=== PATIENT | male | born 1940 | race Caucasian/White ===

== ENCOUNTER 2018-10-10 14:49 | Inpatient (IN) | payer MEDICARE, OTHER ==
[~2018-10-10] VITALS: Ht 177.8 cm; Wt 81.8 kg
[~2018-10-10 14:49] MED LIST: FURO-150 PO
[2018-10-10 15:39] LABS: BASOPHILS # (AUTO) 0.1 X10'3 (0-0.2); BASOPHILS % (AUTO) 0.6 % (0-1); EOSINOPHILS # (AUTO) 2.2 X10'3 (0-0.9); EOSINOPHILS % (AUTO) 22.8 % (0-6); HEMATOCRIT 44.5 % (42.0-52.0); HEMOGLOBIN 14.9 g/dl (14.0-17.9); LYMPHOCYTES # (AUTO) 1.5 X10'3 (1.1-4.8); LYMPHOCYTES % (AUTO) 15.2 % (21-51); MEAN CORPUSCULAR HEMOGLOBIN 31.8 PG (27.0-31.0); MEAN CORPUSCULAR HGB CONC 33.4 % (33.0-36.5); MEAN CORPUSCULAR VOLUME 95.3 FL (78-98); MONOCYTES # (AUTO) 0.8 X10'3 (0-0.9); MONOCYTES % (AUTO) 8.2 % (2-12); NEUTROPHILS # (AUTO) 5.2 X10'3 (1.8-7.7); NEUTROPHILS % (AUTO) 53.2 % (42-75); PLATELET COUNT 214 X10'3 (140-440); RED BLOOD COUNT 4.67 X10'6 (4.70-6.10); RED CELL DISTRIBUTION WIDTH 13.5 % (11.5-14.5); WHITE BLOOD COUNT 9.8 X10'3 (4.5-11.0)
[2018-10-10 15:55] LABS: ALANINE AMINOTRANSFERASE 36 U/L (12-78); ALBUMIN/GLOBULIN RATIO 0.9 (1.1-1.5); ALKALINE PHOSPHATASE 51 IU/L (46-116); ANION GAP 6 (8-16); ASPARTATE AMINO TRANSFERASE 38 U/L (10-37); BILIRUBIN,TOTAL 0.9 MG/DL (0.1-1.0); BLOOD UREA NITROGEN 24 MG/DL (7-18); BUN/CREATININE RATIO 17.9 (5.4-32.0); CALCIUM 9.7 MG/DL (8.5-10.1); CHLORIDE 103 MMOL/L (99-107); CREATININE 1.34 MG/DL (0.60-1.10); GLUCOSE 111 MG/DL (70-104); POTASSIUM 4.9 MMOL/L (3.5-5.1); SODIUM 139 MMOL/L (135-145); TOTAL CARBON DIOXIDE 29.9 MMOL/L (24-32); TOTAL PROTEIN 6.4 G/DL (6.4-8.2); eGFR 51 ML/MIN
[2018-10-10 16:22] LABS: INR 1.5 INR; PARTIAL THROMBOPLASTIN TIME 42 SECONDS (22-32); PROTHROMBIN TIME 14.5 SECONDS (9.0-12.0)
[2018-10-10] MEDS ORDERED: iohexol 350MG/ML 100ml bottle IV ONE (19:13)
[2018-10-10] MEDS ORDERED: temazepam 15mg capsule PO PRN (21:00)
[2018-10-10] MEDS ORDERED: normal saline 1000ml 1,000 ML IV SCH (22:01)
[2018-10-10] MEDS ORDERED: metoclopramide 5 mg/ml inj IV PRN (22:05)
[2018-10-10] MEDS ORDERED: mag hydrox/Alum hydrox/simeth 30ml oral suspension PO PRN (22:05)
[2018-10-10] MEDS ORDERED: morphine 2 MG/ML inj. syringe IV PRN (22:05)
[2018-10-10] MEDS ORDERED: HYDROmorphone 1 mg/ml syringe IV PRN (22:05)
[2018-10-10] MEDS ORDERED: diphenhydrAMINE 50 mg/ml inj IV PRN (22:05)
[2018-10-10] MEDS ORDERED: acetaminophen 325mg tablet PO PRN ×2 (22:05)
[2018-10-10] MEDS ORDERED: ondansetron/PF 4mg/2ml inj IV PRN (22:05)
[2018-10-10] MEDS ORDERED: acetaminophen 650mg rectal suppository RC PRN (22:05)
[2018-10-10] MEDS ORDERED: diphenhydrAMINE 25mg capsule PO PRN (22:05)
[2018-10-10] MEDS ORDERED: magnesium hydroxide 30ml (MOM) UD suspension PO PRN (22:05)
[2018-10-10] MEDS ORDERED: bisacodyl 10mg suppository rectal RC PRN (22:05)
[2018-10-10] MEDS ORDERED: HYDROcodone/acetaminophen 10/325mg tab PO PRN (22:05)
[2018-10-10] MEDS ORDERED: morphine 4 MG/ML inj SYRINge IV PRN (22:13)
[2018-10-10] MEDS ORDERED: RIVA10TA PO (22:13)
[2018-10-10] MEDS ORDERED: METO-539 PO (22:13)
[2018-10-10] MEDS ORDERED: BRIM5DRO EACHEYE (22:26)
[2018-10-10] MEDS ORDERED: DORZ10DR18 EACHEYE (22:26)
[2018-10-10 22:51] LABS: HEMOGLOBIN A1C 5.6 % (4.5-6.2)
[2018-10-10 23:03] LABS: LIPASE 111 U/L (73-393); PHOSPHORUS 3.5 MG/DL (2.3-4.5)
[2018-10-11 04:37] LABS: BASOPHILS # (AUTO) 0.1 X10'3 (0-0.2); BASOPHILS % (AUTO) 0.6 % (0-1); EOSINOPHILS # (AUTO) 2.4 X10'3 (0-0.9); EOSINOPHILS % (AUTO) 26.3 % (0-6); HEMATOCRIT 40.9 % (42.0-52.0); HEMOGLOBIN 13.7 g/dl (14.0-17.9); LYMPHOCYTES # (AUTO) 1.9 X10'3 (1.1-4.8); LYMPHOCYTES % (AUTO) 19.9 % (21-51); MEAN CORPUSCULAR HGB CONC 33.5 % (33.0-36.5); MEAN CORPUSCULAR VOLUME 95.4 FL (78-98); MEAN PLATELET VOLUME 8.9 FL (7.4-10.4); MONOCYTES # (AUTO) 0.7 X10'3 (0-0.9); MONOCYTES % (AUTO) 7.4 % (2-12); NEUTROPHILS # (AUTO) 4.3 X10'3 (1.8-7.7); NEUTROPHILS % (AUTO) 45.8 % (42-75); PLATELET COUNT 171 X10'3 (140-440); RED BLOOD COUNT 4.28 X10'6 (4.70-6.10); RED CELL DISTRIBUTION WIDTH 13.5 % (11.5-14.5); WHITE BLOOD COUNT 9.3 X10'3 (4.5-11.0)
[2018-10-11 05:56] LABS: ALANINE AMINOTRANSFERASE 32 U/L (12-78); ALBUMIN 2.5 G/DL (3.4-5.0); ALBUMIN/GLOBULIN RATIO 0.8 (1.1-1.5); ALKALINE PHOSPHATASE 49 IU/L (46-116); ANION GAP 9 (8-16); BILIRUBIN,TOTAL 0.8 MG/DL (0.1-1.0); BLOOD UREA NITROGEN 24 MG/DL (7-18); BUN/CREATININE RATIO 23.1 (5.4-32.0); CHLORIDE 105 MMOL/L (99-107); CHOL/HDL RATIO 3.6 (0.00-4.99); CHOLESTEROL 128 MG/DL (0-200); CREATININE 1.04 MG/DL (0.60-1.10); GLUCOSE 92 MG/DL (70-104); HDL CHOLESTEROL 36 MG/DL (35-60); LDL CHOLESTEROL 80 MG/DL (50-100); SODIUM 140 MMOL/L (135-145); TOTAL CARBON DIOXIDE 26.5 MMOL/L (24-32); TOTAL PROTEIN 5.5 G/DL (6.4-8.2); TRIGLYCERIDES 56 MG/DL (20-135); eGFR 69 ML/MIN
[2018-10-11 06:00] VITALS: BP 114/68
[2018-10-11 06:01] LABS: ASPARTATE AMINO TRANSFERASE 38 U/L (10-37); POTASSIUM 4.7 MMOL/L (3.5-5.1)
[2018-10-11] MEDS ORDERED: pantoprazole 40mg Tablet.DR PO SCH (07:30)
[2018-10-11] MEDS ORDERED: docusate sod 100mg capsule PO SCH (08:00)
[2018-10-11] MEDS ORDERED: furosemide 10 MG/1 ML 10ml inj IV SCH (08:00)
== END 2018-10-11 11:54 | disposition left against medical advice (07) | DRG 199 ==
LOC: ER 14:50 → ED HOLD 22:01
PROVIDERS: ADMIT Family Medicine; ATTEND Internal Medicine
PROC: B32T1ZZ Computerized Tomography (CT Scan) of Left Pulmonary Artery using Low Osmolar Contrast (ICD-10-PCS; principal; 2018-10-10)
PROC: B3201ZZ Computerized Tomography (CT Scan) of Thoracic Aorta using Low Osmolar Contrast (ICD-10-PCS; 2018-10-10)
PROC: B32S1ZZ Computerized Tomography (CT Scan) of Right Pulmonary Artery using Low Osmolar Contrast (ICD-10-PCS; 2018-10-10)
DX: J93.83 Other pneumothorax (principal); I50.23 Acute on chronic systolic (congestive) heart failure; N17.9 Acute kidney failure, unspecified; I49.5 Sick sinus syndrome; Z53.21 Procedure and treatment not carried out due to patient leaving prior to being seen by health care provider; Z95.0 Presence of cardiac pacemaker; Z79.899 Other long term (current) drug therapy; Z87.891 Personal history of nicotine dependence
CPT/HCPCS: 36415; 71045; 71275; 80053; 80061; 83036; 83605; 83690; 83735; 83880; 84100; 84145; 84443; 84484; 85025; 85610; 85730; 93005; 99285; G0378; J1940; Q9967

== ENCOUNTER 2018-11-19 13:58 | Day surgery (SDC) | payer MEDICARE, OTHER ==
[2018-11-18 09:15] LABS: BASOPHILS % (AUTO) 0.6 % (0-1); EOSINOPHILS # (AUTO) 0.5 X10'3 (0-0.9); EOSINOPHILS % (AUTO) 7.3 % (0-6); HEMATOCRIT 44.8 % (42.0-52.0); HEMOGLOBIN 15.2 g/dl (14.0-17.9); LYMPHOCYTES # (AUTO) 2.8 X10'3 (1.1-4.8); LYMPHOCYTES % (AUTO) 43.6 % (21-51); MEAN CORPUSCULAR HEMOGLOBIN 31.9 PG (27.0-31.0); MEAN CORPUSCULAR VOLUME 93.8 FL (78-98); MEAN PLATELET VOLUME 8.3 FL (7.4-10.4); MONOCYTES # (AUTO) 0.4 X10'3 (0-0.9); MONOCYTES % (AUTO) 6.5 % (2-12); NEUTROPHILS # (AUTO) 2.7 X10'3 (1.8-7.7); PLATELET COUNT 120 X10'3 (140-440); RED BLOOD COUNT 4.78 X10'6 (4.70-6.10); RED CELL DISTRIBUTION WIDTH 14.1 % (11.5-14.5); WHITE BLOOD COUNT 6.4 X10'3 (4.5-11.0)
[2018-11-18 09:23] LABS: ALBUMIN 3.4 G/DL (3.4-5.0); ANION GAP 6 (8-16); BLOOD UREA NITROGEN 18 MG/DL (7-18); BUN/CREATININE RATIO 16.5 (5.4-32.0); CALCIUM 9.1 MG/DL (8.5-10.1); CHLORIDE 106 MMOL/L (99-107); CREATININE 1.09 MG/DL (0.60-1.10); GLUCOSE 97 MG/DL (70-104); POTASSIUM 4.3 MMOL/L (3.5-5.1); SODIUM 143 MMOL/L (135-145); TOTAL CARBON DIOXIDE 31.2 MMOL/L (24-32); eGFR 65 ML/MIN
[2018-11-18 09:27] LABS: PROTHROMBIN TIME 11.1 SECONDS (9.0-12.0)
[2018-11-18 09:28] LABS: INR 1.1 INR; PARTIAL THROMBOPLASTIN TIME 27 SECONDS (22-32)
[2018-11-19] VITALS (7 sets, daily range): BP systolic 102–147; BP diastolic 63–89
[~2018-11-19] VITALS: Ht 177.8 cm; Wt 77.6 kg
[~2018-11-19 13:58] MED LIST changes: +BRIM5DRO EACHEYE; +DORZ10DR18 EACHEYE; -FURO-150 PO; +METO-539 PO; +RIVA10TA PO
[2018-11-19] MEDS ORDERED: diphenhydrAMINE 25mg capsule PO PRN (14:20)
[2018-11-19] MEDS ORDERED: LORazepam 0.5 MG tablet PO PRN (14:20)
[2018-11-19] MEDS ORDERED: normal saline 1000ml 1,000 ML IV SCH (14:20)
[2018-11-19] MEDS ORDERED: METO25TA6 PO (14:22)
[2018-11-19] MEDS ORDERED: MAGN61TA3 PO (14:22)
[2018-11-19] MEDS ORDERED: GABA-532 PO (14:22)
[2018-11-19] MEDS ORDERED: ASPI81TA52 PO (14:22)
[2018-11-19] MEDS ORDERED: LIDOcaine 1% (10mg/ml)w/preservative injection 20ml MDV ONE (16:09)
[2018-11-19] MEDS ORDERED: iohexol 350MG/ML 100ml bottle IV ONE (16:09)
[2018-11-19] MEDS ORDERED: midazolam 2 mg/2 ml injection ONE (16:09)
[2018-11-19] MEDS ORDERED: fentaNYL/PF 50MCG/1 ML 2ML syringe ONE (16:09)
[2018-11-19] MEDS ORDERED: HYDROcodone/acetaminophen 5mg/325mg tablet PO PRN (17:55)
[2018-11-19] MEDS ORDERED: ondansetron/PF 4mg/2ml inj IV PRN (17:55)
[2018-11-19] MEDS ORDERED: proCHLORperazine 10 MG/2 ml inj IV PRN (18:00)
[2018-11-19] MEDS ORDERED: HYDROcodone/acetaminophen 10/325mg tab PO PRN (18:00)
[2018-11-19] MEDS ORDERED: OXAZEpam 15mg capsule PO PRN (18:00)
== END 2018-11-19 19:35 | disposition home or self-care (01) ==
LOC: SSTAY O 13:58
PROVIDERS: ATTEND Internal Medicine Interventional Cardiology
DX: I25.10 Atherosclerotic heart disease of native coronary artery without angina pectoris (principal); E78.49 Other hyperlipidemia; I48.91 Unspecified atrial fibrillation; J90 Pleural effusion, not elsewhere classified; I10 Essential (primary) hypertension; I49.8 Other specified cardiac arrhythmias; M19.90 Unspecified osteoarthritis, unspecified site; H91.8X3 Other specified hearing loss, bilateral; Z90.89 Acquired absence of other organs; Z72.89 Other problems related to lifestyle; Z87.438 Personal history of other diseases of male genital organs; Z79.82 Long term (current) use of aspirin; Z86.79 Personal history of other diseases of the circulatory system; Z87.891 Personal history of nicotine dependence; Z87.09 Personal history of other diseases of the respiratory system; Z95.0 Presence of cardiac pacemaker; Z79.891 Long term (current) use of opiate analgesic; Z79.899 Other long term (current) drug therapy; Z98.890 Other specified postprocedural states
CPT/HCPCS: 36415; 80048; 85025; 85610; 85730; 93005; 93458; 99152; 99153; J1644; J2001; J2250; J3010; J7030; Q0163; Q9967; A4620; C1769

== ENCOUNTER 2019-09-11 05:44 | Day surgery (SDC) | payer MEDICARE, OTHER ==
[2019-09-07 10:29] LABS: BASOPHILS % (AUTO) 0.6 % (0-1); EOSINOPHILS # (AUTO) 0.2 X10'3 (0-0.9); EOSINOPHILS % (AUTO) 3.7 % (0-6); LYMPHOCYTES # (AUTO) 2.3 X10'3 (1.1-4.8); LYMPHOCYTES % (AUTO) 41.6 % (21-51); MEAN CORPUSCULAR HEMOGLOBIN 32.2 PG (27.0-31.0); MEAN CORPUSCULAR VOLUME 94.6 FL (78-98); MEAN PLATELET VOLUME 8.5 FL (7.4-10.4); MONOCYTES # (AUTO) 0.4 X10'3 (0-0.9); MONOCYTES % (AUTO) 7.1 % (2-12); NEUTROPHILS # (AUTO) 2.6 X10'3 (1.8-7.7); PRE OP HEMATOCRIT 43.8 % (42.0-52.0); PRE OP HEMOGLOBIN 14.9 g/dL (14.0-17.9); RED BLOOD COUNT 4.63 X10'6 (4.70-6.10)
[2019-09-07 10:32] LABS: PRE OP PLATELET COUNT 100 X10'3 (140-440)
[2019-09-07 10:46] LABS: ALBUMIN 3.6 G/DL (3.4-5.0); ALBUMIN/GLOBULIN RATIO 1.4 (1.1-1.5); ALKALINE PHOSPHATASE 50 IU/L (46-116); BLOOD UREA NITROGEN 21 MG/DL (7-18); BUN/CREATININE RATIO 19.1 (5.4-32.0); CALCIUM 8.8 MG/DL (8.5-10.1); CHLORIDE 107 MMOL/L (99-107); PRE OP ALT 20 U/L (30-65); PRE OP ANION GAP 4 (8-16); PRE OP AST 38 U/L (10-37); PRE OP BILIRUB, TOTAL 0.7 MG/DL (0.0-1.0); PRE OP GLUCOSE 90 MG/DL (70-104); PRE OP POTASSIUM 4.5 MMOL/L (3.4-5.1); PRE OP SODIUM 140 MMOL/L (135-145); TOTAL CARBON DIOXIDE 29.5 MMOL/L (24-32); TOTAL PROTEIN 6.2 G/DL (6.4-8.2); eGFR 64 ML/MIN
[2019-09-11] VITALS (7 sets, daily range): BP systolic 118–127; BP diastolic 73–83
[~2019-09-11] VITALS: Ht 177.8 cm; Wt 78.9 kg
[~2019-09-11 05:44] MED LIST changes: -BRIM5DRO EACHEYE; +CHOL400T14 PO; +COU4T PO; +CYAN100019 PO; +DOCUMENT DATE & TIME OF BETA-BLOCKER PO ONE; -DORZ10DR18 EACHEYE; +GABA-532 PO; +MAGN400C PO; -METO-539 PO; +METO25TA6 PO; -RIVA10TA PO; +cefazolin/dext.iso 2gm/100ml 100 ML IV ONE; +famotidine 20mg tablet PO ONE; +ringers solution, lacted 1,000 ML IV SCH
[2019-09-11] MEDS ORDERED: ringers solution, lacted 1,000 ML IV SCH (07:12)
[2019-09-11] MEDS ORDERED: LIDOcaine 0.5% (5mg/ml) 50ml vial ONE (07:14)
[2019-09-11] MEDS ORDERED: ondansetron/PF 4mg/2ml inj IV PRN (07:15)
[2019-09-11] MEDS ORDERED: morphine 4 MG/ML inj SYRINge IV PRN ×2 (07:15)
[2019-09-11] MEDS ORDERED: hydrALAZINE 20mg/ml inj. IV PRN (07:15)
[2019-09-11] MEDS ORDERED: enalaprilat dihydrate 2.5mg/2ml vial IV PRN (07:15)
[2019-09-11] MEDS ORDERED: fentaNYL/PF 50MCG/1 ML 2ML syringe IV PRN ×2 (07:15)
[2019-09-11] MEDS ORDERED: MIDAZolam 5mg/5ml vial ONE (07:41)
[2019-09-11] MEDS ORDERED: fentaNYL/PF 50MCG/1 ML 2ML syringe ONE (07:41)
[2019-09-11] MEDS ORDERED: propofol inj 20 ML IV ONE (07:42)
[2019-09-11] MEDS ORDERED: LIDOcaine 2% (20mg/ml) 5ml vial ONE (07:42)
[2019-09-11] MEDS ORDERED: BUPIVAcaine/PF 2.5mg/ml (0.25%) 10ml vial ONE (07:59)
[2019-09-11] MEDS ORDERED: BUPIVAcaine/PF 2.5mg/ml (0.25%) 10ml vial IJ ONE (08:00)
--- NOTE | 2019-09-11 08:13 | NUR ---
Received from OR via BED, accompanied by Anesthesiologist DR MCNEIL and report given by Anesthesiologist. PT DROWSY, NO S/S OF DISTRESS/DISCOMFORT. RIGHT ELBOW W/GEORGE WRAP COVERING INCISION CDI. Addendum: 09/11/19 at 0840 by Sylvia Monsivais RN Amended: Links added.
--- NOTE | 2019-09-11 09:13 | NUR ---
D/C INSTRUCTIONS GIVEN AND GONE OVER W/PT AND PTS , BOTH VERBALIZE UNDERSTANDING, PT D/CD TO HOME VIA W/C TO PRIVATE VEHICLE W/O INCIDENT. Addendum: 09/11/19 at 0922 by Sylvia Monsivais RN Amended: Links added.
== END 2019-09-11 09:13 | disposition home or self-care (01) ==
LOC: PAS 05:44
PROVIDERS: ATTEND Orthopaedic Surgery Hand Surgery
DX: G56.21 Lesion of ulnar nerve, right upper limb (principal); G25.81 Restless legs syndrome; Z87.891 Personal history of nicotine dependence; Z95.0 Presence of cardiac pacemaker; Z79.01 Long term (current) use of anticoagulants; Z79.899 Other long term (current) drug therapy
CPT/HCPCS: 36415; 64718; 71046; 80053; 82948; 85025; J2001; J2250; J2704; J3010; J3490; A4215; A6449; J7120

== ENCOUNTER 2022-09-30 17:31 | Emergency (ER) | payer MEDICARE, OTHER ==
[~2022-09-30] VITALS: Ht 177.8 cm; Wt 80.0 kg
[~2022-09-30 17:31] MED LIST changes: -DOCUMENT DATE & TIME OF BETA-BLOCKER PO ONE; +LOP25T PO; -METO25TA6 PO; -cefazolin/dext.iso 2gm/100ml 100 ML IV ONE; -famotidine 20mg tablet PO ONE; -ringers solution, lacted 1,000 ML IV SCH
[2022-09-30 17:35] VITALS: BP 155/77
[2022-10-01] MEDS ORDERED: LIDOcaine 1% W/epiNEPHrine 1:100,000 20ml vial SQ ONE (00:15)
[2022-10-01] MEDS ORDERED: acetaminophen 325mg tablet PO ONE (00:20)
[2022-10-01] MEDS ORDERED: LIDOCAINE 1%/EPI 1:100,000 inj. 10 ML multi-dose vial IJ ONE (00:20)
[2022-10-01] MEDS ORDERED: bacitracin 15gm ointment TP ONE ×2 (00:55)
[2022-10-01] MEDS ORDERED: TETanus/Pertussis (Acell)/Diphther VAC/PF (Tdap-Adult) 0.5ml syringe IMVAC ONE (01:05)
== END 2022-10-01 01:29 | disposition home or self-care (01) ==
LOC: ER 17:33
DX: S01.01XA Laceration without foreign body of scalp, initial encounter (principal); S61.216A Laceration without foreign body of right little finger without damage to nail, initial encounter; Z95.0 Presence of cardiac pacemaker; Z98.890 Other specified postprocedural states; Z79.899 Other long term (current) drug therapy; W01.0XXA Fall on same level from slipping, tripping and stumbling without subsequent striking against object, initial encounter; Y93.89 Activity, other specified; Y92.89 Other specified places as the place of occurrence of the external cause; Y99.8 Other external cause status; S09.8XXA Other specified injuries of head, initial encounter
CPT/HCPCS: 12002; 70450; 73130; 90471; 90715; 99284; A6222; A6446; A6449